=== PATIENT | male | born 1995 | race Caucasian/White ===

== ENCOUNTER 2019-11-11 22:48 | Emergency (ER) | payer BC ==
[~2019-11-11] VITALS: Ht 182.9 cm; Wt 87.5 kg
[2019-11-11 23:01] VITALS: Ht 182.9 cm; Wt 87.5 kg
[2019-11-12 02:04] VITALS: BP 105/63
== END 2019-11-12 02:04 | disposition home or self-care (01) ==
LOC: ED 22:48
DX: M94.0 Chondrocostal junction syndrome [Tietze] (principal)
CPT/HCPCS: 87804; J1885; Q0092

== ENCOUNTER 2020-10-08 06:19 | Emergency (ER) | payer OTHER ==
[~2020-10-08] VITALS: Ht 182.9 cm; Wt 95.7 kg
[2020-10-08 06:28] VITALS: BP 103/70; Ht 182.9 cm; Wt 95.7 kg
== END 2020-10-08 07:12 | disposition home or self-care (01) ==
LOC: ED 06:19
DX: S61.012A Laceration without foreign body of left thumb without damage to nail, initial encounter (principal); J45.909 Unspecified asthma, uncomplicated; X58.XXXA Exposure to other specified factors, initial encounter; Y93.89 Activity, other specified; Y92.89 Other specified places as the place of occurrence of the external cause; Y99.8 Other external cause status
CPT/HCPCS: 90715; J2001

== ENCOUNTER 2020-10-11 18:12 | Emergency (ER) | payer OTHER ==
[~2020-10-11] VITALS: Ht 182.9 cm; Wt 88.9 kg
[2020-10-11 18:14] VITALS: Ht 182.9 cm; Wt 88.9 kg
[2020-10-11 19:51] LABS: CALCIUM 8.6 mg/dL (8.5-10.1); CARBON DIOXIDE 25.6 mmol/L (21-32); CHLORIDE SERUM 105 mmol/L (98-107); GFR1 > 60 mL/min; GLUCOSE SERUM 102 mg/dL (74-106); POTASSIUM SERUM 3.8 mmol/L (3.5-5.1); SODIUM SERUM 139 mmol/L (136-145)
[2020-10-11 19:56] LABS: ALBUMIN 4.5 g/dL (3.4-5.0); ALKALINE PHOSPHATASE 63 U/L (46-116); ALT/SGPT 63 U/L (16-63); AST/SGOT 48 U/L (15-37); BILIRUBIN TOTAL 0.4 mg/dL (0.20-1.00); TOTAL PROTEIN, SERUM 7.6 g/dL (6.4-8.2)
[2020-10-11 22:21] VITALS: BP 101/45
== END 2020-10-11 22:21 | disposition home or self-care (01) ==
LOC: ED 18:12
PROVIDERS: Emergency Medicine
DX: R07.89 Other chest pain (principal); F14.10 Cocaine abuse, uncomplicated; M62.82 Rhabdomyolysis; J45.909 Unspecified asthma, uncomplicated
CPT/HCPCS: J7030

== ENCOUNTER 2020-10-26 14:37 | Emergency (ER) | payer OTHER ==
[~2020-10-26] VITALS: Ht 182.9 cm; Wt 90.3 kg
[2020-10-26 14:44] VITALS: Ht 182.9 cm; Wt 90.3 kg
[2020-10-26 16:07] LABS: BASOPHIL % 1.3 % (0.2-1.5); PLATELET COUNT 228 x10^3mcL (152-348); RED CELL DISTRIBUTION WIDTH 14.3 % (12.1-16.2)
[2020-10-26 16:14] LABS: CARBON DIOXIDE 26.4 mmol/L (21-32); CHLORIDE SERUM 104 mmol/L (98-107); CREATININE SERUM 0.9 mg/dL (0.7-1.3); GFR1 > 60 mL/min; GLUCOSE SERUM 97 mg/dL (74-106); POTASSIUM SERUM 3.5 mmol/L (3.5-5.1); SODIUM SERUM 142 mmol/L (136-145)
[2020-10-26 16:18] LABS: ALBUMIN 4.3 g/dL (3.4-5.0); ALKALINE PHOSPHATASE 77 U/L (46-116); ALT/SGPT 52 U/L (16-63); AST/SGOT 45 U/L (15-37); BILIRUBIN TOTAL 0.3 mg/dL (0.20-1.00); TOTAL PROTEIN, SERUM 7.4 g/dL (6.4-8.2)
[2020-10-26 19:21] VITALS: BP 121/57
== END 2020-10-26 19:21 | disposition home or self-care (01) ==
LOC: ED 14:37
PROVIDERS: Emergency Medicine
DX: R07.89 Other chest pain (principal); F14.10 Cocaine abuse, uncomplicated; F10.929 Alcohol use, unspecified with intoxication, unspecified; F32.9 Major depressive disorder, single episode, unspecified; J45.909 Unspecified asthma, uncomplicated
CPT/HCPCS: G0480

== ENCOUNTER 2020-11-12 00:20 | Emergency (ER) | payer OTHER ==
[~2020-11-12] VITALS: Ht 182.9 cm; Wt 92.1 kg
[2020-11-12 00:23] VITALS: BP 170/116; Ht 182.9 cm; Wt 92.1 kg
== END 2020-11-12 00:51 ==
LOC: ED 00:20
DX: S69.92XA Unspecified injury of left wrist, hand and finger(s), initial encounter (principal); J45.909 Unspecified asthma, uncomplicated; I10 Essential (primary) hypertension; F17.210 Nicotine dependence, cigarettes, uncomplicated; Z02.79 Encounter for issue of other medical certificate; X58.XXXA Exposure to other specified factors, initial encounter; Y93.89 Activity, other specified; Y92.89 Other specified places as the place of occurrence of the external cause; Y99.8 Other external cause status

== ENCOUNTER → 2020-11-12 | Emergency (ER) | payer OTHER | LOC: ED 00:20 | DX: Z02.89 Encounter for other administrative examinations (principal) ==